=== PATIENT | female | born 1970 | race Caucasian/White ===

== ENCOUNTER 2016-07-07 05:33 | Day surgery (SDC) | payer BC ==
[~2016-07-07] VITALS: Ht 167.6 cm; Wt 54.3 kg
[2016-07-07] VITALS (11 sets, daily range): BP systolic 105–126; BP diastolic 63–76; PULSE 50–78; TEMP 97.8–98.4
[2016-07-07] MEDS ORDERED: MULTI VITAMINS1 TAB PO (06:23)
[2016-07-07] MEDS ORDERED: FERROUS SULFATE65 MG PO (06:24)
[2016-07-07] MEDS ORDERED: MOTRIN 800800 MG/TAB PO (09:00)
[2016-07-07] MEDS ORDERED: PERCOCET 325 MG1 TA2 PO (09:00)
== END 2016-07-07 15:00 | disposition home or self-care (01) ==
LOC: SDCO 05:33 → OB 09:47 → SDCO 09:47 → OB 15:00
DX: N92.0 Excessive and frequent menstruation with regular cycle (principal); N83.12 Corpus luteum cyst of left ovary; N73.6 Female pelvic peritoneal adhesions (postinfective)
CPT/HCPCS: OP; A4315; J0690; J1100; J1885; J2175; J2405; J2704; J2710; J3010; J7120

== ENCOUNTER → 2016-10-04 | Outpatient (CLI) | payer BC ==
[~2016-10-04] MED LIST: FERROUS SULFATE65 MG PO; MOTRIN 800800 MG/TAB PO; MULTI VITAMINS1 TAB PO; PERCOCET 325 MG1 TA2 PO
== END ==
LOC: MC.RAD 13:00
DX: Z12.31 Encounter for screening mammogram for malignant neoplasm of breast (principal); Z98.82 Breast implant status

== ENCOUNTER → 2018-08-27 | Outpatient (CLI) | payer BC | LOC: MC.RAD 09:40 | DX: Z12.31 Encounter for screening mammogram for malignant neoplasm of breast (principal); Z98.82 Breast implant status ==

== ENCOUNTER → 2019-09-19 | Outpatient (CLI) | payer BC | LOC: MC.RAD 06:58 | DX: Z12.31 Encounter for screening mammogram for malignant neoplasm of breast (principal); Z98.82 Breast implant status ==

== ENCOUNTER → 2020-09-20 | Outpatient (CLI) | payer OTHER | LOC: MC.RAD 08:15 | DX: Z12.31 Encounter for screening mammogram for malignant neoplasm of breast (principal); Z01.419 Encounter for gynecological examination (general) (routine) without abnormal findings; Z98.82 Breast implant status ==

== ENCOUNTER → 2021-10-06 | Outpatient (CLI) | payer OTHER | LOC: MC.RAD 12:49 | DX: Z12.31 Encounter for screening mammogram for malignant neoplasm of breast (principal) ==

== ENCOUNTER → 2024-01-03 | Outpatient (CLI) | payer OTHER | LOC: MC.RAD 07:20 | DX: Z12.31 Encounter for screening mammogram for malignant neoplasm of breast (principal) ==